=== PATIENT | male | born 1945 | race Caucasian/White ===

== ENCOUNTER 2017-10-19 13:06 | Inpatient (IN) | payer MEDICARE ==
[~2017-10-19] VITALS: Ht 172.7 cm; Wt 118.0 kg
[~2017-10-19 13:06] MED LIST: CEFAZOLIN 1,000 MG ONE; ONDANSETRON 2MG/ML, 2ML ONE; SUCCINYLCHOLINE 20 MG/ML, 10ML ONE
[2017-10-19] MEDS ORDERED: ASPI-496 PO (14:25)
[2017-10-19] MEDS ORDERED: ATOR20TA9 PO (14:25)
[2017-10-19 14:37] VITALS: BP 174/105
[2017-10-19] MEDS: LACTATED RINGERS 1,000 ML IV SCH ×2 (15:12→22:11)
[2017-10-19] MEDS ORDERED: BUPIVACAINE/PF 0.5% ONE (16:00)
[2017-10-19] MEDS ORDERED: LIDOCAINE/PF 1%, 30ML ONE (16:01)
[2017-10-19] MEDS ORDERED: MIDAZOLAM 1 MG/ML, 2ML ONE (16:18)
[2017-10-19] MEDS ORDERED: FENTANYL PF 250 MCG/5ML ONE (16:19)
[2017-10-19] MEDS ORDERED: ROCURONIUM 10MG/ML,5ML ONE (16:39)
[2017-10-19] MEDS ORDERED: PROPOFOL 10 MG/ML, 20ML ONE (16:39)
[2017-10-19] MEDS ORDERED: FENTANYL PF 100 MCG/2ML IV PRN (17:00)
[2017-10-19] MEDS ORDERED: MEPERIDINE/PF 25MG/0.5ML IVPush PRN (17:00)
[2017-10-19] MEDS ORDERED: MIDAZOLAM 1 MG/ML, 2ML IV PRN (17:00)
[2017-10-19] MEDS ORDERED: LORazepam 2 MG/ML, 1ML IVPush PRN (17:00)
[2017-10-19] MEDS ORDERED: hydrALAzine 20 MG/ML, 1ML IV PRN (17:00)
[2017-10-19] MEDS ORDERED: ALBUTEROL SULFATE 2.5 MG/3 ML NPPB PRN (17:00)
[2017-10-19] MEDS ORDERED: MORPHINE SULFATE 4 MG/ML, 1ML IVPush PRN (17:00)
[2017-10-19] MEDS ORDERED: ONDANSETRON 2MG/ML, 2ML IV PRN ×2 (17:00→21:30)
[2017-10-19] MEDS ORDERED: OXYcodone 5 MG/5 ML ORAL.SOL UDC PO PRN (17:00)
[2017-10-19] MEDS ORDERED: PROMETHAZINE 25 MG/ML, 1ML IV PRN (17:00)
[2017-10-19] MEDS ORDERED: ONDANSETRON ODT 8 MG PO PRN (17:00)
[2017-10-19] MEDS ORDERED: PROMETHAZINE 12.5 MG SUPP PR PRN (17:00)
[2017-10-19] MEDS ORDERED: ACETAMINOPHEN 325 MG TABLET PO PRN (17:00)
[2017-10-19] MEDS ORDERED: ONDANSETRON 2MG/ML, 2ML ONE ×2 (18:35→18:36)
[2017-10-19] MEDS ORDERED: KETOROLAC 30 MG/1 ML ONE (18:35)
[2017-10-19] MEDS ORDERED: DEXAMETHASONE 4 MG/ML, 1ML ONE ×2 (18:36)
[2017-10-19] MEDS ORDERED: ROPIvacaine/PF 0.2%, 20 ML ONE ×2 (18:53)
[2017-10-19] MEDS: LABETALOL 5MG/ML, 20ML IV PRN ×3 (18:59→19:24)
[2017-10-19] MEDS ORDERED: ACETAMINOPHEN 650 MG/20.3 ML UDC ONE (19:59)
[2017-10-19] MEDS ORDERED: OXYcodone 5 MG/5 ML ORAL.SOL UDC ONE (19:59)
[2017-10-19] MEDS ORDERED: LISINOPRIL 5 MG TABLET PO ONE (20:30)
[2017-10-19] MEDS ORDERED: morphine SULFATE 10 MG/ML, 1ML IV PRN (21:30)
[2017-10-19] MEDS: ATORVASTATIN 20 MG TABLET PO SCH (23:01)
[2017-10-19 23:59] VITALS: BP 129/79
[2017-10-20] MEDS: CEFAZOLIN PMX 1GM/50ML 50 ML IV SCH ×2 (01:07→08:24)
[2017-10-20 03:29] VITALS: BP 114/72
[2017-10-20] MEDS: ASPIRIN 81 MG TABLET EC PO SCH (06:14)
[2017-10-20] MEDS: HEPARIN 5,000 UNITS/ML, 1ML SQ SCH ×3 (06:15→21:43)
[2017-10-20 07:14] VITALS: BP 145/77
[2017-10-20] MEDS: OXYcodone/APAP 5/325MG TABLET PO PRN ×2 (15:07→21:43)
[2017-10-20 15:08] VITALS: BP 153/89
[2017-10-20] MEDS: LACTATED RINGERS 1,000 ML IV SCH (15:14)
[2017-10-20 20:01] VITALS: BP 157/88
[2017-10-20] MEDS: ATORVASTATIN 20 MG TABLET PO SCH (21:43)
[2017-10-20 23:42] LABS: CLOSTRIDIUM DIFFICILE ANTIGEN NEGATIVE; CLOSTRIDIUM DIFFICILE TOXIN NEGATIVE (Negative)
[2017-10-21 02:08] VITALS: BP 153/88
[2017-10-21] MEDS ORDERED: MORPHINE SULFATE 4 MG/ML, 1ML ONE (04:22)
[2017-10-21] MEDS: OXYcodone/APAP 5/325MG TABLET PO PRN ×3 (04:26→20:45)
[2017-10-21] MEDS: ASPIRIN 81 MG TABLET EC PO SCH (06:00)
[2017-10-21] MEDS: HEPARIN 5,000 UNITS/ML, 1ML SQ SCH ×3 (06:42→22:15)
[2017-10-21 07:22] VITALS: BP 160/83
[2017-10-21] MEDS ORDERED: OXYC1TAB7 PO (07:28)
[2017-10-21 13:16] VITALS: BP 150/88
[2017-10-21 19:21] VITALS: BP_SYST 177; BP_SYST 183; BP_DIAS 87; BP_DIAS 91
[2017-10-21] MEDS: ATORVASTATIN 20 MG TABLET PO SCH (20:45)
[2017-10-21] MEDS: LABETALOL 5MG/ML, 20ML IVPush PRN (22:15)
[2017-10-22] VITALS (7 sets, daily range): BP systolic 157–193; BP diastolic 82–117
[2017-10-22] MEDS: LABETALOL 5MG/ML, 20ML IVPush PRN ×5 (01:14→14:23)
[2017-10-22] MEDS: ASPIRIN 81 MG TABLET EC PO SCH (06:31)
[2017-10-22] MEDS: HEPARIN 5,000 UNITS/ML, 1ML SQ SCH ×2 (06:32→14:00)
[2017-10-22] MEDS: OXYcodone/APAP 5/325MG TABLET PO PRN ×2 (06:35→11:54)
== END 2017-10-22 14:50 | disposition home or self-care (01) | DRG 493 ==
LOC: OUT 13:06 → EDSTATUS 17:00 → 4NOR 20:30 → OUT 20:55
PROVIDERS: ADMIT Orthopaedic Surgery; ATTEND Orthopaedic Surgery
PROC: 0SSL04Z Reposition Left Tarsometatarsal Joint with Internal Fixation Device, Open Approach (ICD-10-PCS; 2017-10-19)
PROC: 0SSG04Z Reposition Left Ankle Joint with Internal Fixation Device, Open Approach (ICD-10-PCS; 2017-10-19)
PROC: 0QHM35Z Insertion of External Fixation Device into Left Tarsal, Percutaneous Approach (ICD-10-PCS; 2017-10-19)
PROC: 0QSK04Z Reposition Left Fibula with Internal Fixation Device, Open Approach (ICD-10-PCS; principal; 2017-10-19 16:30)
PROC: 0QSH04Z Reposition Left Tibia with Internal Fixation Device, Open Approach (ICD-10-PCS; 2017-10-19 16:30)
DX: S82.402A Unspecified fracture of shaft of left fibula, initial encounter for closed fracture (principal); J96.10 Chronic respiratory failure, unspecified whether with hypoxia or hypercapnia; S93.05XA Dislocation of left ankle joint, initial encounter; S92.302A Fracture of unspecified metatarsal bone(s), left foot, initial encounter for closed fracture; E11.9 Type 2 diabetes mellitus without complications; X58.XXXA Exposure to other specified factors, initial encounter; Y93.89 Activity, other specified; Y92.89 Other specified places as the place of occurrence of the external cause; Y99.8 Other external cause status; F17.200 Nicotine dependence, unspecified, uncomplicated; I10 Essential (primary) hypertension; Z68.39 Body mass index [BMI] 39.0-39.9, adult
CPT/HCPCS: 76001; 87324; 93005; C1713; J0690; J1100; J1644; J1885; J2250; J2405; J2704; J2795; J3010; J3490; J0330; J2270; J7120

== ENCOUNTER 2018-10-04 12:29 | Outpatient (CLI) | payer MEDICARE ==
[~2018-10-04 12:29] MED LIST changes: +ASPI-496 PO; +ATOR20TA37 PO; -CEFAZOLIN 1,000 MG ONE; -ONDANSETRON 2MG/ML, 2ML ONE; +OXYC1TAB7 PO; -SUCCINYLCHOLINE 20 MG/ML, 10ML ONE
== END 2018-10-04 23:59 | disposition home or self-care (01) ==
LOC: CFH 12:29
PROVIDERS: ATTEND Physician Assistant
DX: S46.011A Strain of muscle(s) and tendon(s) of the rotator cuff of right shoulder, initial encounter (principal); M19.011 Primary osteoarthritis, right shoulder; M25.78 Osteophyte, vertebrae; M24.011 Loose body in right shoulder; M62.58 Muscle wasting and atrophy, not elsewhere classified, other site; G89.29 Other chronic pain; X58.XXXA Exposure to other specified factors, initial encounter; Y93.89 Activity, other specified; Y92.89 Other specified places as the place of occurrence of the external cause; Y99.8 Other external cause status

== ENCOUNTER 2020-01-04 11:30 | Outpatient (CLI) | payer MEDICARE ==
[2020-01-04] MEDS ORDERED: AMLO2.5T5 PO (12:06)
[2020-01-04 12:45] LABS: BASOPHILS % (AUTO) 1 % (0-1); EOSINOPHILS % (AUTO) 1 % (1-7); LYMPHOCYTES % (AUTO) 7 % (22-44); MEAN CORPUSCULAR HGB CONC 32.8 g/dL (33.2-36.2); MEAN PLATELET VOLUME 6.2 fL (7.4-10.4); MONOCYTES % (AUTO) 9 % (2-9); NEUTROPHILS % (AUTO) 83 % (42-75); PLATELET COUNT 324 x10^3/uL (130-400); RED BLOOD COUNT 4.25 x10^6/uL (4.38-5.82); RED CELL DISTRIBUTION WIDTH 14.2 % (9.4-14.8)
[2020-01-04 12:54] LABS: INTERNATIONAL NORMALIZED RATIO 1.08 (0.93-1.1); PROTHROMBIN TIME 11.1 Seconds (9.6-11.5)
[2020-01-04 12:59] LABS: ALBUMIN 2.9 g/dL (3.4-5.0); ANION GAP 11 mmol/L (5-15); CALCIUM 9.7 mg/dL (8.5-10.1); CHLORIDE 99 mmol/L (98-107)
[2020-01-04 13:03] LABS: ALANINE AMINOTRANSFERASE 50 U/L (12-78); ALKALINE PHOSPHATASE 417 U/L (45-117); BILIRUBIN,TOTAL 0.9 mg/dL (0.2-1.0); CREATININE 0.83 mg/dL (0.7-1.3); TOTAL PROTEIN 7.7 g/dL (6.4-8.2)
[2020-01-04 13:33] LABS: MD SCAN
== END 2020-01-04 23:59 | disposition home or self-care (01) ==
LOC: STAR 11:30
PROVIDERS: ATTEND Orthopaedic Surgery
DX: Z01.818 Encounter for other preprocedural examination (principal); Z20.828 Contact with and (suspected) exposure to other viral communicable diseases; I45.10 Unspecified right bundle-branch block; I25.2 Old myocardial infarction; T84.021D Dislocation of internal left hip prosthesis, subsequent encounter; Y79.8 Miscellaneous orthopedic devices associated with adverse incidents, not elsewhere classified; X58.XXXD Exposure to other specified factors, subsequent encounter; Z79.01 Long term (current) use of anticoagulants
CPT/HCPCS: 36415; 80053; 83036; 85025; 85610; 85730; 87081; 87635; 93005

== ENCOUNTER 2020-01-09 08:32 | Inpatient (IN) | payer MEDICARE ==
[~2020-01-09] VITALS: Ht 172.7 cm; Wt 106.6 kg
[~2020-01-09 08:32] MED LIST changes: +AMLO2.5T5 PO; +EPINEPHRINE 1 MG/ML, 1ML ONE; +KETOROLAC 60 MG/2 ML ONE; +ROPIvacaine/PF 0.5%, 20 ML ONE; +ROPIvacaine/PF 0.5%, 30 ML ONE; +SODIUM CHLORIDE 0.9% 50 ML ONE; +TRANEXAMIC ACID 100 MG/ML, 10ML ONE; +VANCOMYCIN 1,000 MG ONE
[2020-01-09] MEDS ORDERED: FENTANYL PF 100 MCG/2ML ONE ×2 (09:09→11:18)
[2020-01-09] MEDS ORDERED: MIDAZOLAM 1 MG/ML, 2ML ONE (09:09)
[2020-01-09] MEDS ORDERED: ROCURONIUM 10MG/ML,5ML ONE (09:10)
[2020-01-09] MEDS ORDERED: ONDANSETRON 2MG/ML, 2ML ONE (09:10)
[2020-01-09] MEDS ORDERED: CEFAZOLIN 1,000 MG ONE (09:10)
[2020-01-09] MEDS ORDERED: SUCCINYLCHOLINE 20 MG/ML, 10ML ONE (09:10)
[2020-01-09] MEDS ORDERED: GLYCOPYRROLATE 0.2MG/1ML, 5ML ONE (09:10)
[2020-01-09] MEDS ORDERED: NEOSTIGMINE 1 MG/ML, 10ML ONE (09:10)
[2020-01-09] MEDS ORDERED: PROPOFOL 10 MG/ML, 20ML ONE (09:10)
[2020-01-09] MEDS ORDERED: DEXAMETHASONE 4 MG/ML, 1ML ONE (09:10)
[2020-01-09] MEDS ORDERED: ACETAMINOPHEN 500 MG TABLET ONE (09:17)
[2020-01-09] MEDS ORDERED: GABAPENTIN 300 MG CAPSULE ONE (09:17)
[2020-01-09] MEDS ORDERED: CHLORHEXIDINE 15 ML UDC ONE (09:17)
[2020-01-09] MEDS ORDERED: TAMS-11 PO (09:21)
[2020-01-09] MEDS ORDERED: LISI-167 PO (09:21)
[2020-01-09] MEDS ORDERED: ACETAMINOPHEN 500 MG TABLET PO ONE (09:30)
[2020-01-09] MEDS ORDERED: VANCOMYCIN PER PHARMACY MC PRN (09:30)
[2020-01-09] MEDS ORDERED: LACTATED RINGERS 1,000 ML IV SCH (09:30)
[2020-01-09] MEDS ORDERED: VANCOMYCIN 2,000 MG in SODIUM CHLORIDE 0.9% 500 ML IV ONE (09:30)
[2020-01-09] MEDS ORDERED: GABAPENTIN 300 MG CAPSULE PO ONE (09:30)
[2020-01-09] MEDS ORDERED: CHLORHEXIDINE 15 ML UDC MM ONE (09:30)
[2020-01-09] MEDS ORDERED: LIDOCAINE-MPF 1%, 2ML INFIL ONE (09:30)
[2020-01-09] MEDS ORDERED: LIDOCAINE PF 2%, 5ML ONE (09:56)
[2020-01-09] MEDS ORDERED: SUGAMMADEX 200 MG/2 ML IVPush ONE (09:56)
[2020-01-09] MEDS ORDERED: DIPHENHYDRAMINE 50 MG CAPSULE PO PRN (10:00)
[2020-01-09] MEDS ORDERED: MAGNESIUM HYDROXIDE 8%, 30ML UDC PO PRN (10:00)
[2020-01-09] MEDS ORDERED: OXYcodone IR 5MG TABLET PO PRN (10:00)
[2020-01-09] MEDS ORDERED: HYDROcodone/APAP 5/325 TABLET PO PRN (10:00)
[2020-01-09] MEDS ORDERED: ONDANSETRON 2MG/ML, 2ML IV PRN (10:00)
[2020-01-09] MEDS ORDERED: BISACODYL 10 MG SUPP PR PRN (10:00)
[2020-01-09] MEDS ORDERED: ONDANSETRON 4 MG TABLET PO PRN (10:00)
[2020-01-09] MEDS ORDERED: SENNA/DOCUSATE TABLET PO PRN (10:00)
[2020-01-09] MEDS ORDERED: ZOLPIDEM 5MG TABLET PO PRN (10:00)
[2020-01-09] MEDS ORDERED: HYDROmorphone 1 MG/ML, 1ML INJ IVPush PRN (10:30)
[2020-01-09] MEDS ORDERED: PROMETHAZINE 25 MG/ML, 1ML IVPush PRN (10:30)
[2020-01-09] MEDS ORDERED: FENTANYL PF 100 MCG/2ML IV PRN (10:30)
[2020-01-09] MEDS ORDERED: MEPERIDINE/PF 25MG/0.5ML IVPush PRN (10:30)
[2020-01-09] MEDS ORDERED: HYDROcodone/APAP 7.5-325MG/15ML UDC PO PRN (10:30)
[2020-01-09] MEDS ORDERED: OXYcodone 5 MG/5 ML ORAL.SOL UDC PO PRN (10:30)
[2020-01-09] MEDS ORDERED: HYDROcodone/APAP 7.5-325MG/15ML UDC ONE (11:18)
[2020-01-09] MEDS ORDERED: HYDROmorphone 1 MG/ML, 1ML INJ ONE (11:18)
[2020-01-09 14:00] VITALS: BP 103/64
[2020-01-09] MEDS: CEFAZOLIN PMX 2GM/50ML 50 ML IVPB SCH (17:49)
[2020-01-09] MEDS: ASPIRIN 81 MG TABLET EC PO SCH (17:49)
[2020-01-09] MEDS: NS + 20MEQ KCL 1,000 ML IV SCH (17:50)
[2020-01-09] MEDS ORDERED: DOCUSATE 100 MG CAPSULE PO SCH (21:00)
[2020-01-09 21:34] VITALS: BP 91/48
[2020-01-09] MEDS: ATORVASTATIN 20 MG TABLET PO SCH (21:50)
[2020-01-10 00:30] VITALS: BP 109/62
[2020-01-10] MEDS: CEFAZOLIN PMX 2GM/50ML 50 ML IVPB SCH (02:09)
[2020-01-10 04:22] VITALS: BP 101/53
[2020-01-10] MEDS: NS + 20MEQ KCL 1,000 ML IV SCH ×2 (05:36→18:13)
[2020-01-10] MEDS: ASPIRIN 81 MG TABLET EC PO SCH ×2 (05:46→18:12)
[2020-01-10] MEDS ORDERED: DEXAMETHASONE 4 MG/ML, 1ML IVPush SCH (06:00)
[2020-01-10] MEDS: TAMSULOSIN 0.4 MG CAP.ER.24H PO SCH (07:59)
[2020-01-10] MEDS: DOCUSATE 100 MG CAPSULE PO SCH ×2 (07:59→19:44)
[2020-01-10] MEDS: LISINOPRIL 10 MG TABLET PO SCH (08:00)
[2020-01-10 08:32] VITALS: BP 114/61
[2020-01-10 14:03] VITALS: BP 97/56
[2020-01-10] MEDS: ATORVASTATIN 20 MG TABLET PO SCH (19:44)
[2020-01-10] MEDS: ACETAMINOPHEN 650 MG/20.3 ML UDC PO PRN (19:44)
[2020-01-10 19:47] VITALS: BP 126/76
[2020-01-11] MEDS: ACETAMINOPHEN 650 MG/20.3 ML UDC PO PRN ×2 (00:13→05:55)
[2020-01-11 00:52] VITALS: BP 123/68
[2020-01-11] MEDS: ASPIRIN 81 MG TABLET EC PO SCH ×2 (05:55→18:25)
[2020-01-11] MEDS: NS + 20MEQ KCL 1,000 ML IV SCH ×2 (07:00→19:04)
[2020-01-11 07:50] VITALS: BP 114/68
[2020-01-11] MEDS: LISINOPRIL 10 MG TABLET PO SCH (08:18)
[2020-01-11] MEDS: TAMSULOSIN 0.4 MG CAP.ER.24H PO SCH (08:18)
[2020-01-11] MEDS: DOCUSATE 100 MG CAPSULE PO SCH ×2 (08:18→19:04)
[2020-01-11] MEDS: ATORVASTATIN 20 MG TABLET PO SCH (19:16)
[2020-01-11 20:58] VITALS: BP 112/65
[2020-01-12 00:30] VITALS: BP 125/78
[2020-01-12] MEDS: ASPIRIN 81 MG TABLET EC PO SCH (05:28)
[2020-01-12] MEDS: NS + 20MEQ KCL 1,000 ML IV SCH (05:44)
[2020-01-12 07:16] VITALS: BP 142/78
[2020-01-12] MEDS: DOCUSATE 100 MG CAPSULE PO SCH (08:22)
[2020-01-12] MEDS: LISINOPRIL 10 MG TABLET PO SCH (08:22)
[2020-01-12] MEDS: TAMSULOSIN 0.4 MG CAP.ER.24H PO SCH (08:22)
[2020-01-12 12:11] VITALS: BP 123/80
[2020-01-12] MEDS ORDERED: ASPI81TA45 PO (13:04)
[2020-01-12 14:02] VITALS: BP 132/87
== END 2020-01-12 14:43 | DRG 468 ==
LOC: ORIP 08:32 → 3WST 13:19
PROVIDERS: ADMIT Orthopaedic Surgery; ATTEND Orthopaedic Surgery
PROC: 0SPB0JZ Removal of Synthetic Substitute from Left Hip Joint, Open Approach (ICD-10-PCS; 2020-01-09)
PROC: 0SRB06A Replacement of Left Hip Joint with Oxidized Zirconium on Polyethylene Synthetic Substitute, Uncemented, Open Approach (ICD-10-PCS; principal; 2020-01-09 11:15)
DX: T84.021A Dislocation of internal left hip prosthesis, initial encounter (principal); Y83.8 Other surgical procedures as the cause of abnormal reaction of the patient, or of later complication, without mention of misadventure at the time of the procedure; Y79.8 Miscellaneous orthopedic devices associated with adverse incidents, not elsewhere classified; Y92.9 Unspecified place or not applicable
CPT/HCPCS: 36415; 72170; 85014; 85018; 86850; 86900; C1713; G0378; J0171; J0690; J1100; J1885; J2250; J2405; J2704; J2710; J2795; J3010; J3370; J3480; C1776; J0330; J7040; J7120